=== PATIENT | female | born 1965 | race African-American/Black ===

== ENCOUNTER 2017-02-13 08:09 | Emergency (ER) | payer OTHER ==
[~2017-02-13] VITALS: Ht 154.9 cm; Wt 81.7 kg
[2017-02-13 09:21] LABS: ABSOLUTE NEUTROPHILS 4.3 thou/uL (1.4-8.2); BASOPHILS 1.2 % (0.0-2.0); EOSINOPHILS 1.1 % (0.0-3.0); HEMATOCRIT 43.2 % (37.0-47.0); HEMOGLOBIN 14.7 gm/dL (12.0-15.0); LYMPHOCYTES 31.5 % (24.0-44.0); MCH 29.4 pg (26.0-34.0); MCHC 33.9 g/dL (28.0-37.0); MCV 86.5 fL (80.0-100.0); PLATELET COUNT 315 thou/uL (150-400); POLYS 56.2 % (36.0-66.0); RBC 4.99 mil/uL (4.20-5.00); RDW 14.1 % (10.5-14.5); WBC 7.6 thou/uL (4.0-11.0)
[2017-02-13 09:23] LABS: MANUAL DIFF NO
[2017-02-13 09:37] LABS: CALCIUM 9.2 mg/dL (8.5-10.1); CREATININE 0.8 mg/dL (0.6-1.0)
[2017-02-13 10:45] VITALS: BP 120/65
== END 2017-02-13 11:03 | disposition home or self-care (01) ==
LOC: ER 08:09
PROVIDERS: Emergency Medicine
DX: K11.20 Sialoadenitis, unspecified (principal); F10.99 Alcohol use, unspecified with unspecified alcohol-induced disorder; Z86.19 Personal history of other infectious and parasitic diseases; Z88.6 Allergy status to analgesic agent

== ENCOUNTER 2017-08-09 17:54 | Emergency (ER) | payer OTHER ==
[~2017-08-09] VITALS: Ht 154.9 cm; Wt 74.8 kg
[2017-08-09 19:06] LABS: URINE BILIRUBIN NEGATIVE (Negative); URINE BLOOD NEGATIVE (Negative); URINE CLARITY CLEAR; URINE COLOR YELLOW; URINE GLUCOSE-RANDOM* NEGATIVE (Negative); URINE KETONES NEGATIVE (Negative); URINE LEUKOCYTES-REFLEX NEGATIVE (Negative); URINE NITRITE-REFLEX NEGATIVE (Negative); URINE PROTEIN (DIPSTICK) NEGATIVE (Negative); URINE SPECIFIC GRAVITY 1.025 (1.005-1.035); URINE UROBILINOGEN 0.2 E.U./dl (0.2-1.0)
[2017-08-09 19:22] LABS: HEMATOCRIT 43.8 % (37.0-47.0); HEMOGLOBIN 14.2 gm/dL (12.0-15.0); MCH 28.6 pg (26.0-34.0); MCHC 32.5 g/dL (28.0-37.0); MCV 87.9 fL (80.0-100.0); RBC 4.98 mil/uL (4.20-5.00); RDW 14.5 % (10.5-14.5); WBC 7.1 thou/uL (4.0-11.0)
[2017-08-09 19:33] LABS: CALCIUM 9.2 mg/dL (8.5-10.1); CREATININE 0.8 mg/dL (0.6-1.0); POTASSIUM 4.2 mmol/L (3.5-5.1)
[2017-08-09 19:43] LABS: ALBUMIN 3.2 g/dL (3.4-5.0); TOTAL BILIRUBIN 0.3 mg/dL (<0.1-1.0); TOTAL PROTEIN 7.1 g/dL (6.4-8.2)
== END 2017-08-09 20:27 | disposition home or self-care (01) ==
LOC: ER 17:54
PROVIDERS: Emergency Medicine
DX: R19.7 Diarrhea, unspecified (principal); R10.9 Unspecified abdominal pain; R11.0 Nausea; Z88.6 Allergy status to analgesic agent

== ENCOUNTER 2017-11-01 06:25 | Emergency (ER) | payer OTHER ==
[~2017-11-01] VITALS: Ht 154.9 cm; Wt 72.6 kg
[2017-11-01 06:26] VITALS: BP 157/86
[2017-11-01] MEDS ORDERED: NORCO 5-325 TA1 EACH PO (06:35)
[2017-11-01] MEDS ORDERED: IBUPROFEN 400400 M2 PO (06:35)
[2017-11-01] MEDS ORDERED: FLEXERIL PO (06:35)
== END 2017-11-01 07:11 | disposition home or self-care (01) ==
LOC: ER 06:25
DX: S33.5XXA Sprain of ligaments of lumbar spine, initial encounter (principal); G89.29 Other chronic pain; F17.210 Nicotine dependence, cigarettes, uncomplicated; X58.XXXA Exposure to other specified factors, initial encounter; Y93.89 Activity, other specified; Y92.89 Other specified places as the place of occurrence of the external cause; Y99.8 Other external cause status

== ENCOUNTER 2018-03-19 08:15 | Emergency (ER) | payer OTHER ==
[~2018-03-19] VITALS: Ht 154.9 cm; Wt 79.4 kg
[~2018-03-19 08:15] MED LIST: FLEXERIL PO; IBUPROFEN 400400 M2 PO; NORCO 5-325 TA1 EACH PO
[2018-03-19 08:43] LABS: URINE BILIRUBIN NEGATIVE (Negative); URINE BLOOD NEGATIVE (Negative); URINE CLARITY CLEAR; URINE COLOR YELLOW; URINE GLUCOSE-RANDOM* NEGATIVE (Negative); URINE KETONES NEGATIVE (Negative); URINE LEUKOCYTES-REFLEX NEGATIVE (Negative); URINE NITRITE-REFLEX NEGATIVE (Negative); URINE PROTEIN (DIPSTICK) NEGATIVE (Negative); URINE SPECIFIC GRAVITY >= 1.030 (1.005-1.035); URINE UROBILINOGEN 0.2 E.U./dl (0.2-1.0)
[2018-03-19 09:00] LABS: ABSOLUTE NEUTROPHILS 3.1 thou/uL (1.4-8.2); BASOPHILS 1.2 % (0.0-2.0); EOSINOPHILS 1.6 % (0.0-3.0); HEMATOCRIT 43.1 % (37.0-47.0); HEMOGLOBIN 14.6 gm/dL (12.0-15.0); LYMPHOCYTES 39.6 % (24.0-44.0); MCH 29.6 pg (26.0-34.0); MCV 87.2 fL (80.0-100.0); MONOCYTES 9.2 % (1.0-8.0); PLATELET COUNT 295 thou/uL (150-400); POLYS 48.4 % (36.0-66.0); RBC 4.95 mil/uL (4.20-5.00); RDW 14.4 % (10.5-14.5); WBC 6.3 thou/uL (4.0-11.0)
[2018-03-19 09:09] LABS: CREATININE 0.8 mg/dL (0.6-1.0); POTASSIUM 4.3 mmol/L (3.5-5.1)
[2018-03-19 09:15] LABS: ALBUMIN 2.9 g/dL (3.4-5.0); TOTAL BILIRUBIN 0.4 mg/dL (<0.1-1.0); TOTAL PROTEIN 6.7 g/dL (6.4-8.2)
[2018-03-19] MEDS ORDERED: LOPERAMIDE 2 MG2 M1 PO (09:49)
[2018-03-19] MEDS ORDERED: ZOFRAN ODT4 MG PO (09:49)
[2018-03-19] MEDS ORDERED: BENTYL 20 MG TA20 M1 PO (09:49)
[2018-03-19 10:56] VITALS: BP 121/81
== END 2018-03-19 10:56 | disposition home or self-care (01) ==
LOC: ER 08:15
PROVIDERS: Emergency Medicine
DX: K52.9 Noninfective gastroenteritis and colitis, unspecified (principal)

== ENCOUNTER 2018-06-24 16:15 | Emergency (ER) | payer OTHER ==
[~2018-06-24] VITALS: Ht 154.9 cm; Wt 72.6 kg
[~2018-06-24 16:15] MED LIST changes: +BENTYL 20 MG TA20 M1 PO; +LOPERAMIDE 2 MG2 M1 PO; +ZOFRAN ODT4 MG PO
[2018-06-24] MEDS ORDERED: ZPAK PO (17:49)
[2018-06-24] MEDS ORDERED: MOBIC15 MG PO (17:49)
[2018-06-24] MEDS ORDERED: TESSALON PERLE100 MG PO (17:49)
[2018-06-24] MEDS ORDERED: VENTOLIN HFA 1818 GM INH (17:49)
[2018-06-24 17:56] VITALS: BP 142/84
--- NOTE | 2018-06-24 22:12 | EKG ---
[address] [place] [address] ELECTROCARDIOGRAM REPORT Name: SANTANA GARCIA Room #: DEP Mulugeta#: [id number] Admission: 06/24/18 Attend Phys: Discharge: 06/24/18 Date of : 65 Report #: [id number] THIS REPORT FOR: //name// [facility] ED Test Date: 2018-06-24 Test Time: 16:50:28 Pat Name: SANTANA GARCIA Department: Room: Gender: F Machine Farmworker: ROLLY : 1965 Requested By: Maddi Payne Order Number: [id number] MD: Anderson Rajput Measurements Intervals [place] Rate: 68 P: 61 SC: 164 QRS: 45 QRSD: 66 T: 118 QT: 364 QTc: 388 Interpretive Statements Sinus rhythm Left atrial enlargement Nonspecific T abnormalities, lateral leads No previous ECG available for comparison Electronically Signed On 06-24-2018 22:12:38 BASIN OPERATOR by Anderson Rajput [email or web address] <ELECTRONICALLY SIGNED> By: Anderson Rajput MD 06/24/18 2212 1650 1650 MD MAKSIM Hickman
== END 2018-06-24 17:56 | disposition home or self-care (01) ==
LOC: ER 16:15
DX: J18.9 Pneumonia, unspecified organism (principal); K75.89 Other specified inflammatory liver diseases; Z98.890 Other specified postprocedural states

== ENCOUNTER 2018-09-26 04:40 | Emergency (ER) | payer OTHER ==
[~2018-09-26] VITALS: Ht 154.9 cm; Wt 72.6 kg
[~2018-09-26 04:40] MED LIST changes: +MOBIC15 MG PO; +TESSALON PERLE100 MG PO; +VENTOLIN HFA 1818 GM INH; +ZPAK PO
[2018-09-26] MEDS ORDERED: PREDNISONE 20 M20 MG PO (05:02)
[2018-09-26] MEDS ORDERED: NORFLEX100 MG PO (05:02)
[2018-09-26] MEDS ORDERED: TRAMADOL 50 MG50 MG PO (05:02)
[2018-09-26 05:07] LABS: ABSOLUTE NEUTROPHILS 5.9 thou/uL (1.4-8.2); EOSINOPHILS 0.9 % (0.0-3.0); HEMATOCRIT 45.2 % (37.0-47.0); LYMPHOCYTES 30.8 % (24.0-44.0); MCH 28.6 pg (26.0-34.0); MCHC 33.2 g/dL (28.0-37.0); MCV 86.1 fL (80.0-100.0); MONOCYTES 9.1 % (1.0-8.0); PLATELET COUNT 288 thou/uL (150-400); POLYS 58.2 % (36.0-66.0); RBC 5.24 mil/uL (4.20-5.00); WBC 10.1 thou/uL (4.0-11.0)
[2018-09-26 05:18] LABS: ANION GAP 12 mmol/L (7-16); BUN 13 mg/dL (7-18); CALCIUM 9.5 mg/dL (8.5-10.1); CHLORIDE 103 mmol/L (98-107); CO2 24 mmol/L (21-32); CREATININE 0.8 mg/dL (0.6-1.0); GLUCOSE 104 mg/dL (74-106); POTASSIUM 3.9 mmol/L (3.5-5.1); SODIUM 139 mmol/L (136-145)
[2018-09-26 05:19] LABS: APTT 29.4 Seconds (24.5-32.8); PROTIME 10.7 Seconds (9.3-11.4)
[2018-09-26 05:23] LABS: AMP/METHAMP Negative (Negative); BARBITURATES Negative (Negative); BENZODIAZEPINES Negative (Negative); COCAINE POSITIVE (Negative); METHADONE Negative (Negative); OPIATES Negative (Negative); PCP Negative (Negative)
[2018-09-26 05:27] LABS: ALBUMIN 3.5 g/dL (3.4-5.0); MAGNESIUM 1.6 mg/dL (1.8-2.4); SALICYLATE 2.8 mg/dL (2.8-20.0); SGOT 18 U/L (15-37); SGPT 12 U/L (30-65); TOTAL BILIRUBIN 0.6 mg/dL (<0.1-1.0); TOTAL PROTEIN 7.5 g/dL (6.4-8.2); TROPONIN-I <0.06 ng/mL (<0.06)
[2018-09-26 05:55] VITALS: BP 129/97
--- NOTE | 2018-09-26 09:01 | EKG ---
[address] [place] [address] ELECTROCARDIOGRAM REPORT Name: SANTANA GARCIA Room #: DEP Mulugeta#: [id number] ������������������ Admission: 09/26/18 ������������������ Attend Phys: Discharge: 09/26/18 ������������������ Date of : 65 Report #: [id number] ����������������������������������������������������������������� [id number] THIS REPORT FOR: //name// [facility] ED Test Date: 2018-09-26 Test Time: 04:43:35 Pat Name: SANTANA GARCIA Department: Room: Gender: F Facilities Painter: MARI : 1965 Requested By: Salvador Adams Order Number: [id number] MD: Anderson Rajput Measurements Intervals [place] Rate: 79 P: 62 WA: 174 QRS: 51 QRSD: 73 T: QT: 356 QTc: 409 Interpretive Statements Sinus rhythm LAE, consider biatrial enlargement Compared to ECG 06/24/2018 16:50:28 T-wave abnormality no longer present Electronically Signed On 09-26-2018 9:00:49 CDT by Anderson Rajput [email or web address] ��������������������������������������������� <ELECTRONICALLY SIGNED> ���������������������������������������� By: Anderson Rajput MD ��������������������������������������������� 09/26/18 0900 2 2 Anderson Rajput MD /[email or web address]
== END 2018-09-26 06:13 | disposition home or self-care (01) ==
LOC: ER 04:40
PROVIDERS: Emergency Medicine
DX: E87.6 Hypokalemia (principal); F14.10 Cocaine abuse, uncomplicated; B19.10 Unspecified viral hepatitis B without hepatic coma; F17.210 Nicotine dependence, cigarettes, uncomplicated; Z87.01 Personal history of pneumonia (recurrent); Z88.6 Allergy status to analgesic agent

== ENCOUNTER 2020-07-11 08:34 | Emergency (ER) | payer OTHER ==
[~2020-07-11] VITALS: Ht 154.9 cm; Wt 72.6 kg
[~2020-07-11 08:34] MED LIST changes: +NORFLEX100 MG PO; +PREDNISONE 20 M20 MG PO; +TRAMADOL 50 MG50 MG PO
[2020-07-11] MEDS ORDERED: HYDROCODON-ACE1 EAC7 PO (09:50)
[2020-07-11] MEDS ORDERED: KEFLEX500 M1 PO (09:50)
[2020-07-11 10:02] VITALS: BP 116/79
== END 2020-07-11 10:02 | disposition home or self-care (01) ==
LOC: ER 08:34
DX: L03.312 Cellulitis of back [any part except buttock and flank] (principal); L02.212 Cutaneous abscess of back [any part, except buttock and flank]; L72.3 Sebaceous cyst; F17.210 Nicotine dependence, cigarettes, uncomplicated

== ENCOUNTER 2020-07-16 18:19 | Emergency (ER) | payer OTHER ==
[~2020-07-16] VITALS: Ht 154.9 cm; Wt 72.6 kg
[~2020-07-16 18:19] MED LIST changes: +HYDROCODON-ACE1 EAC7 PO; +KEFLEX500 M1 PO
[2020-07-16 20:29] LABS: URINE BILIRUBIN NEGATIVE (Negative); URINE BLOOD NEGATIVE (Negative); URINE CLARITY CLEAR; URINE COLOR YELLOW; URINE GLUCOSE-RANDOM* NEGATIVE (Negative); URINE KETONES NEGATIVE (Negative); URINE LEUKOCYTES-REFLEX TRACE (Negative); URINE NITRITE-REFLEX NEGATIVE (Negative); URINE PROTEIN (DIPSTICK) 1+ (Negative); URINE SPECIFIC GRAVITY 1.025 (1.005-1.035)
[2020-07-16 20:31] LABS: ABSOLUTE NEUTROPHILS 4.9 thou/uL (1.4-8.2); BASOPHILS 0.7 % (0.0-2.0); EOSINOPHILS 0.1 % (0.0-3.0); HEMATOCRIT 45.9 % (37.0-47.0); HEMOGLOBIN 15.7 gm/dL (12.0-15.0); LYMPHOCYTES 8.1 % (24.0-44.0); MCH 29.8 pg (26.0-34.0); MCHC 34.2 g/dL (28.0-37.0); MCV 87.3 fL (80.0-100.0); MONOCYTES 6.5 % (1.0-8.0); PLATELET COUNT 289 thou/uL (150-400); POLYS 84.6 % (36.0-66.0); RBC 5.26 mil/uL (4.20-5.00); RDW 14.6 % (10.5-14.5); WBC 5.8 thou/uL (4.0-11.0)
[2020-07-16 20:35] LABS: SQUAMOUS 4-10 Moderate /LPF (0-3); URINE WBC-REFLEX 0-5 Rare /HPF (0-5)
[2020-07-16 20:36] LABS: CASTS None Seen /LPF (None Seen); CRYSTALS None Seen /LPF (None Seen); URINE RBC None Seen /HPF (0-2)
[2020-07-16 20:38] LABS: CALCIUM 9.8 mg/dL (8.5-10.1); CREATININE 1.1 mg/dL (0.6-1.0); POTASSIUM 3.3 mmol/L (3.5-5.1)
[2020-07-16] MEDS ORDERED: DOXYCYCLINE 10100 MG PO (20:52)
[2020-07-16] MEDS ORDERED: ULTRAM 50MG TAB50 MG PO (20:55)
[2020-07-16 21:14] VITALS: BP 127/78
== END 2020-07-16 21:14 | disposition home or self-care (01) ==
LOC: ER 18:19
PROVIDERS: Nurse Practitioner
DX: R11.2 Nausea with vomiting, unspecified (principal); J18.9 Pneumonia, unspecified organism; F17.210 Nicotine dependence, cigarettes, uncomplicated; Z20.828 Contact with and (suspected) exposure to other viral communicable diseases; Z88.8 Allergy status to other drugs, medicaments and biological substances